=== PATIENT | male | born 1990 | race Caucasian/White ===

== ENCOUNTER 2018-03-12 14:02 | Emergency (ER) | payer OTHER ==
[~2018-03-12] VITALS: Ht 177.8 cm; Wt 104.3 kg
[~2018-03-12 14:02] MED LIST: AMOXICILLIN500 MG PO; IBUPROFEN600 MG PO; MEDROL4 M1 PO; MOBIC15 MG PO; NAPROSYN500 MG PO; NORCO 5-325 TA1 EACH PO; PENICILLIN V P500 MG PO; PROVENTIL HFA6.7 GM INH; ZITHROMAX250 MG PO
== END 2018-03-12 15:26 | disposition home or self-care (01) ==
LOC: ED 14:02
DX: S93.401A Sprain of unspecified ligament of right ankle, initial encounter (principal); X50.9XXA Other and unspecified overexertion or strenuous movements or postures, initial encounter; F17.200 Nicotine dependence, unspecified, uncomplicated
CPT/HCPCS: 73610; 99283

== ENCOUNTER 2019-07-21 15:26 | Emergency (ER) | payer OTHER ==
[~2019-07-21] VITALS: Ht 177.8 cm; Wt 104.3 kg
== END 2019-07-21 16:27 | disposition home or self-care (01) ==
LOC: ED 15:26
DX: L84 Corns and callosities (principal); F17.200 Nicotine dependence, unspecified, uncomplicated
CPT/HCPCS: 99283

== ENCOUNTER 2020-10-23 15:33 | Emergency (ER) | payer SELFPAY ==
[~2020-10-23] VITALS: Ht 177.8 cm; Wt 104.3 kg
[2020-10-23] MEDS ORDERED: PENICILLIN V P500 MG PO (15:58)
== END 2020-10-23 16:23 | disposition home or self-care (01) ==
LOC: ED 15:33
DX: K08.89 Other specified disorders of teeth and supporting structures (principal); F17.200 Nicotine dependence, unspecified, uncomplicated
CPT/HCPCS: 99282

== ENCOUNTER 2023-05-24 08:44 | Emergency (ER) | payer OTHER ==
[~2023-05-24] VITALS: Ht 177.8 cm; Wt 122.3 kg
[2023-05-24] MEDS ORDERED: LIDODERM1 EACH TOP (09:06)
[2023-05-24] MEDS ORDERED: NAPROSYN500 MG PO (09:06)
[2023-05-24 10:03] VITALS: BP 120/87
== END 2023-05-24 10:04 | disposition home or self-care (01) ==
LOC: ED 08:44
DX: S43.402A Unspecified sprain of left shoulder joint, initial encounter (principal); X50.0XXA Overexertion from strenuous movement or load, initial encounter; F17.200 Nicotine dependence, unspecified, uncomplicated
CPT/HCPCS: 73030; 99283-25